=== PATIENT | male | born 1940 | race African-American/Black ===

== ENCOUNTER 2020-04-30 09:47 | Outpatient (CLI) | payer MEDICARE, SELFPAY ==
--- NOTE | ~2020-04-30 | XR_ITS ---
EXAMINATION: XR chest 2V EXAM DATE: 04/30/2020 10:23 INDICATION: Shortness of breath. TECHNIQUE: Frontal and lateral projections of the chest obtained and reviewed. There is no prior ashlyn dy for comparison. FINDINGS: Right pleural blunting which could be chronic or small pleural effusion. There is tortuosi ty of the aorta. There is mild to moderate thoracolumbar levoscoliosis. Some advanced bony degenerati ve changes. No pneumothorax or acute airspace disease. Some scattered right upper lobe granulomata. IMPRESSION: 1. Small left pleural effusion versus chronic blunting. 2. Right upper lobe granulomata. 3. No acute findings. Reviewed, dictated and finalized at location B. [employer]
== END 2020-04-30 09:48 | disposition home or self-care (01) ==
LOC: ANHIMG 10:05
PROVIDERS: PCP Internal Medicine; Visit Provider Internal Medicine
DX: R06.02 Shortness of breath (principal); J90 Pleural effusion, not elsewhere classified
CPT/HCPCS: 71046